=== PATIENT | male | born 1950 | race Caucasian/White ===

== ENCOUNTER 2021-09-28 10:08 | Outpatient (CLI) | payer MEDICARE ==
[2021-09-28 12:10] LABS: Hemoglobin 12.8 g/dL (13.5-17.5); Mean Corpuscular HGB CONC 33.8 g/dL (32.0-36.0); Mean Corpuscular Volume 91.8 fl (81.2-95.1); Mean Platelet Volume 11.2 fl (7.4-10.4); Platelet Count 189 10x3/uL (150-450); RBC Distribution Width 12.3 % (11.5-14.5); Red Blood Cell (RBC) Count 4.13 10x6/uL (4.32-5.72); White Blood Cell (WBC) Count 6.4 10x3/uL (3.5-10.5)
[2021-09-28 12:30] LABS: Anion Gap 13 mmol/L (10-20); BUN (Urea Nitrogen) 19 mg/dL (8.4-25.7); Calc. Creatinine Clearance 0 mL/min (70-130); Calcium 9.2 mg/dL (7.8-10.44); Carbon Dioxide 30 mmol/L (23-31); Chloride 98 mmol/L (98-107); Glucose 157 mg/dL (80-115); Potassium 4.3 mmol/L (3.5-5.1); Sodium 137 mmol/L (136-145)
[2021-09-28 21:06] LABS: SARS-CoV-2 PCR by NAA Not Detected (NotDetected)
== END 2021-09-28 10:09 | disposition home or self-care (01) ==
LOC: CSHLAB 10:08
PROVIDERS: ATTEND Otolaryngology Plastic Surgery within the Head & Neck
DX: Z01.818 Encounter for other preprocedural examination (principal); Z20.822 Contact with and (suspected) exposure to COVID-19; Q89.2 Congenital malformations of other endocrine glands
CPT/HCPCS: 80048; 85027; 93005; 93010; U0003; U0005

== ENCOUNTER 2021-10-19 10:39 | Outpatient (CLI) | payer MEDICARE ==
[2021-10-19 11:54] LABS: Hemoglobin 12.3 g/dL (13.5-17.5); Mean Corpuscular HGB CONC 34.2 g/dL (32.0-36.0); Mean Corpuscular Hemoglobin 30.4 pg (27.0-33.0); Mean Corpuscular Volume 88.9 fl (81.2-95.1); Mean Platelet Volume 10.6 fl (7.4-10.4); Platelet Count 208 10x3/uL (150-450); RBC Distribution Width 12.1 % (11.5-14.5); Red Blood Cell (RBC) Count 4.05 10x6/uL (4.32-5.72); White Blood Cell (WBC) Count 4.3 10x3/uL (3.5-10.5)
[2021-10-19 12:11] LABS: Anion Gap 13 mmol/L (10-20); BUN (Urea Nitrogen) 9 mg/dL (8.4-25.7); Calc. Creatinine Clearance 0 mL/min (70-130); Calcium 8.9 mg/dL (7.8-10.44); Carbon Dioxide 29 mmol/L (23-31); Chloride 95 mmol/L (98-107); Glucose 225 mg/dL (80-115); Potassium 4.6 mmol/L (3.5-5.1); Sodium 132 mmol/L (136-145)
[2021-10-19 21:03] LABS: SARS-CoV-2 PCR by NAA DETECTED (NotDetected)
== END 2021-10-19 10:40 | disposition home or self-care (01) ==
LOC: CSHLAB 10:39
PROVIDERS: ATTEND Otolaryngology Plastic Surgery within the Head & Neck
DX: Z01.810 Encounter for preprocedural cardiovascular examination (principal); Z01.812 Encounter for preprocedural laboratory examination; U07.1 COVID-19
CPT/HCPCS: 80048; 85027; 93005; 93010; U0003; U0005

== ENCOUNTER 2021-11-21 06:16 | Observation (INO) | payer MEDICARE ==
[2021-11-21] MEDS ORDERED: Lidocaine 1% MPF 2 ML VIAL ONE (08:55)
[2021-11-21] MEDS ORDERED: Lidocaine 1% PF 5 ML VIAL ONE (09:23)
[2021-11-21] MEDS ORDERED: Lidocaine 1% w/Epinephrine 1:100K 30 ML VIAL ONE (09:23)
[2021-11-21] MEDS ORDERED: Dexamethasone 20 MG/5 ML VIAL ONE (09:23)
[2021-11-21] MEDS ORDERED: CEFAZOLIN 1 GM VIAL ONE (09:23)
[2021-11-21] MEDS ORDERED: Rocuronium Bromide 10 MG/ML (10ML VIAL) ONE (09:23)
[2021-11-21] MEDS ORDERED: PROPOFOL 20 ML ONE (09:23)
[2021-11-21] MEDS ORDERED: Fentanyl 100 MCG/2 ML VIAL ONE (09:23)
[2021-11-21] MEDS ORDERED: Midazolam HCl 2 mg/2 ml Vial ONE (09:23)
[2021-11-21] MEDS ORDERED: Ondansetron PF 4 MG/2 ML Vial ONE (09:23)
[2021-11-21] MEDS ORDERED: ePHEDrine Sulfate 50 MG/10 ML VIAL ONE (09:25)
[2021-11-21] MEDS ORDERED: PHENYLEPHRINE-NS 100 MCG/ML 10 ML SYRINGE ONE (09:25)
[2021-11-21] MEDS ORDERED: Acetaminophen 325 MG TAB PO PRN (09:40)
[2021-11-21] MEDS ORDERED: Ondansetron PF 4 MG/2 ML Vial IVP PRN (09:40)
[2021-11-21] MEDS ORDERED: Glycopyrrolate 0.2 MG/ML 5 ML SYRINGE ONE (11:00)
[2021-11-21 12:20] VITALS: BMI 35.6
[2021-11-21] MEDS: HYDROcodone/Acetaminophen 5/325 mg Tablet PO PRN ×2 (12:29→20:21)
[2021-11-21] MEDS: Carvedilol 3.125 MG TAB PO SCH (20:07)
[2021-11-21] MEDS: busPIRone HCl 5 MG TAB PO SCH (20:07)
[2021-11-21] MEDS: Torsemide 20 MG TAB PO SCH (20:08)
[2021-11-21] MEDS ORDERED: Atorvastatin Calcium 40 MG TAB PO SCH (21:00)
[2021-11-22 07:19] VITALS: BP 122/79; TEMP 97.7
[2021-11-22] MEDS ORDERED: Clopidogrel Bisulfate 75 MG TAB PO SCH (09:00)
[2021-11-22] MEDS ORDERED: Folic Acid 1 MG TAB PO SCH (09:00)
[2021-11-22] MEDS ORDERED: FLUoxetine HCl 20 MG CAP PO SCH (09:00)
[2021-11-22] MEDS ORDERED: Apixaban 5 MG TAB PO SCH (09:00)
[2021-11-22] MEDS: busPIRone HCl 5 MG TAB PO SCH (09:16)
[2021-11-22] MEDS: HYDROcodone/Acetaminophen 5/325 mg Tablet PO PRN (09:16)
[2021-11-22] MEDS: Torsemide 20 MG TAB PO SCH (09:18)
[2021-11-22] MEDS: Carvedilol 3.125 MG TAB PO SCH (09:18)
== END 2021-11-22 10:37 | disposition home or self-care (01) ==
LOC: CSHSDC 06:16 → CSHTELE 11:53 → INTOOBSV 11:53
PROVIDERS: ADMIT Otolaryngology Plastic Surgery within the Head & Neck; ATTEND Otolaryngology Plastic Surgery within the Head & Neck
PROC: 0WB60ZZ Excision of Neck, Open Approach (ICD-10-PCS; principal; 2021-11-21)
DX: Q89.2 Congenital malformations of other endocrine glands (principal); I11.0 Hypertensive heart disease with heart failure; I50.9 Heart failure, unspecified; Z79.899 Other long term (current) drug therapy; Z79.01 Long term (current) use of anticoagulants; F32.A Depression, unspecified; Z87.891 Personal history of nicotine dependence
CPT/HCPCS: 60280; G0378 ×2; 88305; J0690; J1100; J2250; J2405; J2704; J3010